=== PATIENT | male | born 1995 | race Caucasian/White ===

== ENCOUNTER 2018-09-08 15:44 | Emergency (ER) | payer BC, OTHER | END 2018-09-08 17:14 | disposition home or self-care (01) | LOC: E/R 15:44 | DX: F11.23 Opioid dependence with withdrawal (principal) | CPT/HCPCS: 99282 ==

== ENCOUNTER 2018-10-30 01:53 | Emergency (ER) | payer BC | END 2018-10-30 05:30 | disposition home or self-care (01) | LOC: E/R 01:53 | DX: F10.230 Alcohol dependence with withdrawal, uncomplicated (principal) | CPT/HCPCS: 99283 ==